=== PATIENT | female | born 2000 | race African-American/Black ===

== ENCOUNTER 2020-09-14 08:59 | Day surgery (SDC) | payer SELFPAY ==
[2020-09-14] VITALS (10 sets, daily range): BP systolic 98–109; BP diastolic 58–73
[~2020-09-14] VITALS: Ht 152.4 cm; Wt 52.6 kg
[~2020-09-14 08:59] MED LIST: CYCL5TAB14 PO; DOXY150T3 PO; TRAM50TA2 PO; albuterol 2.5 MG/3 ML nebule NEB ONE; ceFAZolin 2gm in dextrose, iso 50 ML IV ONE; famotidine 20mg tablet PO ONE; ringers solution, lacted 1,000 ML IV SCH
[2020-09-14] MEDS ORDERED: BUPIVAcaine/PF 2.5 mg/ml (0.25%) 30ml vial ONE (10:04)
[2020-09-14] MEDS ORDERED: ondansetron/PF 4mg/2ml inj ONE ×2 (10:14→12:58)
[2020-09-14] MEDS ORDERED: propofol inj 20 ML IV ONE (10:14)
[2020-09-14] MEDS ORDERED: LIDOcaine 2% (20mg/ml) 5ml vial ONE (10:14)
[2020-09-14] MEDS ORDERED: hydrALAZINE 20mg/ml inj. IV PRN (10:25)
[2020-09-14] MEDS ORDERED: fentaNYL/PF 50MCG/1 ML 2ML syringe IV PRN ×2 (10:25)
[2020-09-14] MEDS ORDERED: labetalol 20mg/4ml (5mg/ml) syringe IV PRN (10:25)
[2020-09-14] MEDS ORDERED: morphine 4 MG/ML inj SYRINge IV PRN (10:25)
[2020-09-14] MEDS ORDERED: ringers solution, lacted 1,000 ML IV SCH (10:25)
[2020-09-14] MEDS ORDERED: ondansetron/PF 4mg/2ml inj IV PRN (10:25)
[2020-09-14] MEDS ORDERED: morphine 2 MG/ML inj. syringe IV PRN (10:25)
[2020-09-14 10:39] LABS: HCG SERUM QL NEGATIVE
[2020-09-14] MEDS ORDERED: rocuronium 10mg/ml inj IV ONE (10:59)
[2020-09-14] MEDS ORDERED: fentaNYL/PF 50MCG/1 ML 2ML syringe ONE ×2 (11:00→12:33)
[2020-09-14] MEDS ORDERED: midazolam 2 mg/2 ml injection ONE (11:01)
[2020-09-14] MEDS ORDERED: atropine 0.4 mg/ml 20ml vial ONE (12:15)
[2020-09-14] MEDS ORDERED: metoprolol tartrate 1mg/ml inj IV ONE (12:15)
[2020-09-14] MEDS ORDERED: sevoflurane 250ml liquid IH ONE (12:15)
[2020-09-14] MEDS ORDERED: esmolol 10mg/ml inj IV ONE (12:15)
[2020-09-14] MEDS ORDERED: neostigmine methylsulfate 1 MG/ML 10ml vial ONE (12:58)
[2020-09-14] MEDS ORDERED: glycopyrrolate 0.2mg/ml inj ONE (12:58)
[2020-09-14] MEDS ORDERED: dexamethasone sod phosphate 4mg/ml inj. ONE (12:58)
[2020-09-14] MEDS ORDERED: sugammadex 200mg/2ml injection IV ONE (13:00)
--- NOTE | 2020-09-14 13:05 | NUR ---
Received from OR via eliel, accompanied by Anesthesiologist Chuckie and report given by Anesthesiolgist. VS stable, 20G IVF LR at 100cc/hr. Left buttock dressed with 2 inch packing 4x4 ABD and tape. Mask to 10L sats 100%.
--- NOTE | 2020-09-14 16:47 | NUR ---
Pt discharged to vehicle by wheelchair without incident after IV DC'd. Dressing remains CDI. All belongings returned to patient. She and mother verbalized understanding of all DC instructions. They know to follow up in wound care clinic tomorrow. 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
== END 2020-09-14 15:25 | disposition home or self-care (01) ==
LOC: PAS 08:59
PROVIDERS: ATTEND Surgery
DX: L02.31 Cutaneous abscess of buttock (principal); Z79.899 Other long term (current) drug therapy
CPT/HCPCS: 10061; 36415; 82948; 84703; 87426; C9399; J0461; J1100; J2001; J2250; J2270; J2405; J2704; J2710; J3010; J3490; J7120; A4215; A4618; A6253; A6407; A6449; A7000

== ENCOUNTER → 2020-10-11 | Outpatient (CLI) | payer SELFPAY ==
[~2020-10-11] MED LIST changes: +LIDOcaine 2% 5ml jelly ONE; -albuterol 2.5 MG/3 ML nebule NEB ONE; -ceFAZolin 2gm in dextrose, iso 50 ML IV ONE; -famotidine 20mg tablet PO ONE; -ringers solution, lacted 1,000 ML IV SCH
== END | disposition home or self-care (01) ==
LOC: WOUND CARE 08:27
PROVIDERS: ATTEND Nurse Practitioner
DX: T81.89XD Other complications of procedures, not elsewhere classified, subsequent encounter (principal); L98.412 Non-pressure chronic ulcer of buttock with fat layer exposed; L05.91 Pilonidal cyst without abscess; K21.9 Gastro-esophageal reflux disease without esophagitis; R76.11 Nonspecific reaction to tuberculin skin test without active tuberculosis; F32.9 Major depressive disorder, single episode, unspecified; Z79.899 Other long term (current) drug therapy; Y83.8 Other surgical procedures as the cause of abnormal reaction of the patient, or of later complication, without mention of misadventure at the time of the procedure
CPT/HCPCS: 11042